=== PATIENT | male | born 1970 | race African-American/Black ===

== ENCOUNTER 2018-05-02 10:04 | Emergency (ER) | payer SELFPAY | END 2018-05-02 10:51 | disposition home or self-care (01) | LOC: ERS 10:04 | DX: B35.6 Tinea cruris (principal); I10 Essential (primary) hypertension; K21.9 Gastro-esophageal reflux disease without esophagitis; F17.220 Nicotine dependence, chewing tobacco, uncomplicated; Z79.899 Other long term (current) drug therapy | CPT/HCPCS: 99282 ==

== ENCOUNTER 2019-06-11 08:02 | Emergency (ER) | payer SELFPAY ==
[2019-06-11] MEDS ORDERED: Ketorolac Tromethamine 60 MG/2 ML VIAL ONE (08:21)
--- NOTE | 2019-06-16 14:54 | EKG ---
Test Reason : Blood Pressure : / mmHG Vent. Rate : 053 BPM Atrial Rate : 053 BPM P-R Int : 202 ms QRS Dur : 098 ms QT Int : 410 ms P-R-T Axes : 056 -23 -07 degrees QTc Int : 384 ms Sinus bradycardia Voltage criteria for left ventricular hypertrophy ST elevation, consider early repolarization Abnormal ECG Confirmed by DALE GREGG, RAMONE Wong ([id number]), editor managing newspaper SHARI KHOURY ([id number]) on 06/16/2019 2:54:21 PM Referred By: Confirmed By:RAMONE HUNTER MD
== END 2019-06-11 08:45 | disposition home or self-care (01) ==
LOC: SCSER 08:02
DX: S46.912A Strain of unspecified muscle, fascia and tendon at shoulder and upper arm level, left arm, initial encounter (principal); K21.9 Gastro-esophageal reflux disease without esophagitis; F17.220 Nicotine dependence, chewing tobacco, uncomplicated; X50.9XXA Other and unspecified overexertion or strenuous movements or postures, initial encounter
CPT/HCPCS: 93005; 96372; J1885

== ENCOUNTER 2022-08-22 17:50 | Emergency (ER) | payer SELFPAY ==
[2022-08-22 19:22] LABS: SARS-CoV-2 NAA Rapid Test Not Detected (NotDetected)
== END 2022-08-22 20:02 | disposition home or self-care (01) ==
LOC: ERS 17:50
DX: J11.1 Influenza due to unidentified influenza virus with other respiratory manifestations (principal); K21.9 Gastro-esophageal reflux disease without esophagitis; I10 Essential (primary) hypertension; Z20.822 Contact with and (suspected) exposure to COVID-19
CPT/HCPCS: 99283